=== PATIENT | male | born 2000 | race Caucasian/White ===

== ENCOUNTER 2020-01-01 14:57 | Outpatient (CLI) | payer BC | END 2020-01-01 14:58 | disposition home or self-care (01) | LOC: LAB 14:57 | PROVIDERS: ATTEND Pediatrics | DX: R00.0 Tachycardia, unspecified (principal) | CPT/HCPCS: 36415; 84443 ==

== ENCOUNTER 2021-03-03 08:00 | Outpatient (CLI) | payer BC ==
--- NOTE | 2021-03-03 13:33 | XRAY Report ---
PROCEDURE: Ankle 3 View RT INDICATIONS: PAIN IN RIGHT ANKLE TECHNIQUE: 3 views of the ankle were acquired. COMPARISON: X-ray foot 03/03/2021 FINDINGS: Bones: No fractures or dislocations. Ankle mortise is normally aligned. No suspicious bony lesions . Soft tissues: No tibiotalar joint effusion. Achilles tendon appears normal. IMPRESSION: No visualized acute fracture or dislocation. However, occult injury cannot be excluded. Recommend short interval imaging follow-up in 7-10 days as clinically indicated for additional evalua tion. Reviewed by: Leeanna Muniz MD on 03/03/2021 1:31 PM PDT Approved by: Leeanna Muniz MD on 03/03/2021 1:31 PM PDT Station ID: [id number]
--- NOTE | 2021-03-03 13:33 | XRAY Report ---
PROCEDURE: Foot 3 View RT INDICATIONS: PAIN IN RIGHT FOOT TECHNIQUE: 3 views of the foot were acquired. COMPARISON: X-ray ankle 03/03/2021 FINDINGS: Bones: No fractures or dislocations. No suspicious bony lesions. Soft tissues: No tibiotalar joint effusion. Achilles tendon appears normal. IMPRESSION: No visualized acute fracture or dislocation. However, occult injury cannot be excluded. Recommend paul rt interval imaging follow-up in 7-10 days as clinically indicated for additional evaluation. Reviewed by: Leeanna Muniz MD on 03/03/2021 1:32 PM PDT Approved by: Leeanna Muniz MD on 03/03/2021 1:32 PM PDT Station ID: [id number]
== END 2021-03-03 23:59 | disposition home or self-care (01) ==
LOC: DI.S 08:00
PROVIDERS: ATTEND Physician Assistant Medical
DX: M25.571 Pain in right ankle and joints of right foot (principal)